=== PATIENT | female | born 1945 | race Caucasian/White ===

== ENCOUNTER 2019-07-29 07:34 | Inpatient (IN) | payer OTHER ==
[2019-07-23 13:51] LABS: HEMATOCRIT 41.6 % (37.0-47.0); HEMOGLOBIN 13.3 gm/dL (12.0-15.0); MCH 26.7 pg (26.0-34.0); MCV 83.5 fL (80.0-100.0); RBC 4.98 mil/uL (4.20-5.00); RDW 15.8 % (10.5-14.5); URINE BILIRUBIN NEGATIVE (Negative); URINE BLOOD NEGATIVE (Negative); URINE CLARITY CLEAR; URINE COLOR YELLOW; URINE GLUCOSE-RANDOM* NEGATIVE (Negative); URINE KETONES NEGATIVE (Negative); URINE LEUKOCYTES-REFLEX TRACE (Negative); URINE NITRITE-REFLEX NEGATIVE (Negative); URINE PROTEIN (DIPSTICK) NEGATIVE (Negative); URINE UROBILINOGEN 0.2 E.U./dl (0.2-1.0); WBC 9.8 thou/uL (4.0-11.0)
[2019-07-23 14:00] LABS: ALBUMIN 3.6 g/dL (3.4-5.0); CALCIUM 10.2 mg/dL (8.5-10.1); CREATININE 0.7 mg/dL (0.6-1.0); POTASSIUM 4.7 mmol/L (3.5-5.1)
[2019-07-23 14:08] LABS: PROTIME 10.3 Seconds (9.3-11.4)
[~2019-07-29] VITALS: Ht 162.6 cm; Wt 54.4 kg
[~2019-07-29 07:34] MED LIST: BETAINE PO; BOSWELLIA SERRAT1 GM PO; CARDIO PLUS PO; LOPRESSOR50 MG PO; LOPRESSOR50 PO; MAGNESIUM250 M1 PO; PROBIOTIC1 EAC7 PO; ULTRAM 50MG TAB50 MG PO; VITAMIN D31250 MC1 PO; [UNRECOGNIZED DRUG - OTHER] PO; [UNRECOGNIZED DRUG - OTHER] PO; [UNRECOGNIZED DRUG - OTHER] PO; [UNRECOGNIZED DRUG - OTHER] PO; [UNRECOGNIZED DRUG - OTHER] PO
[2019-07-29 08:41] VITALS: BP 154/83
--- NOTE | 2019-07-29 18:45 | NUR ---
PT RECEIVED FROM REC RM TO RM 437 ALERT AND IN NO ACUTE DISTRESS. DID HAVE SOME NAUSEA WITH PHYSICAL THERAPY THAT SOON SUBSIDED. NO C/O PAIN. ASSISTED UP TO [facility] USING WALKER AND DID WELL. EATING AND DRINKING W/O NAUSEA.
[2019-07-29 21:10] VITALS: BP 128/86
--- NOTE | 2019-07-30 02:12 | NUR ---
ASSESSMENT COMPLETED.PT IS ALERT AND ORIENTED. POST OP R KNEE WITH HAWK DRSG IN PLACE WELL POLAR STEFANIA. TOLERATING SCDS. PT GETS UP WELL WITH SBA TO THE BSC. VSS. C/O AND PRN OXYCODONE GIVEN. NEURO VASCULAR CHECKS INTACT TO RLE. PT DENIES ANY NAUSEA SO FAR. REMAINS ON ROOM AIR.GIVEN IV FLUIDS WELL IV ABTS.PROGRESSING TOWARDS GOALS.
[2019-07-30 06:08] LABS: HEMATOCRIT 34.7 % (37.0-47.0); MCH 26.8 pg (26.0-34.0); MCHC 31.7 g/dL (28.0-37.0); MCV 84.5 fL (80.0-100.0); RBC 4.11 mil/uL (4.20-5.00); RDW 15.8 % (10.5-14.5); WBC 10.7 thou/uL (4.0-11.0)
[2019-07-30 06:32] LABS: CREATININE 0.8 mg/dL (0.6-1.0); POTASSIUM 4.6 mmol/L (3.5-5.1)
[2019-07-30 07:29] VITALS: BP 136/74
--- NOTE | 2019-07-30 11:52 | NUR ---
Assumed care of pt at 0700. Pt a&ox4. Pain controlled with prn pain meds. Physical therapy worked with patient. LUCRETIA green and SCDs in place. Polar pack in place. Pt up to the chair this am. Family at bedside. Fall precautions in place. Will continue to monitor.
--- NOTE | 2019-07-30 13:28 | NUR ---
ASSESSMENT-PT LIVES AT HOME WITH HER . PT HAS BEEN USING A BORROWED WALKER OUTSIDE OF THE HOME AND OCCASIONALLY IN THE HOME. SPOUSE HAS BEEN DOING THE HOUSEHOLD THINGS. SHE HAS NOT HAD ANY HH SERVICES AND WILL GO TO OUTPT THERAPY IN [place] ON SATURDAY. THEY HAVE A DTR AND GRANDKIDS IN THE AREA AND A SISTER AND A NIECE. PRIOR TO THE ISSUE WITH HER KNEE PT WAS DRIVING. OFFERED OPTIONS FOR A WALKER AND SHE CHOSE [facility]. CONTACTED [facility] AND SHE WILL ISSUE PT A ROLLER WALKER TODAY. NO OTHER DC NEEDS IDENTIFIED.
--- NOTE | 2019-07-30 15:03 | O ---
[address] [address] OPERATIVE REPORT Name: RAVIN COTON Stewart Room #: 437-P ADM IN M.R.#: [id number] Admission: 07/29/19 Attend Phys: Gt Carballo MD Discharge: Date of : 41 Report #: [id number] THIS REPORT FOR: //name// CC: Gt Stacy DATE OF SERVICE: 07/29/2019 SERVICE: Orthopedics. FACILITY: [facility]. SURGEON: Gt Carballo MD FRUIT SPRAYER: Annalise Breger NP. INDICATION FOR FRUIT SPRAYER: Exposure retraction and assistance with the reconstruction and implantation and wound closure. PREOPERATIVE DIAGNOSES: 1. Right knee pain. 2. End-stage right knee osteoarthritis. 3. Right knee instability. POSTOPERATIVE DIAGNOSES: 1. Right knee pain. 2. End-stage right knee osteoarthritis. 3. Right knee instability. 4. Right knee osteopenia. PROCEDURES: 1. Right total knee arthroplasty. 2. Computer navigated robotic assistance, right knee. COMPLICATIONS: None. DRAINS: None. SPECIMENS: None. ANESTHESIA: General with regional. ESTIMATED BLOOD LOSS: 100 mL. FINDINGS: 1. [facility] [address] [address] OPERATIVE REPORT Name: ROCHELLE COTO Room #: 437-P [facility] IN ..#: [id number] Admission: 07/29/19 Attend Phys: Gt Carballo MD Discharge: Date of : 43 Report #: [id number] cobalt chrome size 4 narrow femur, Gen II size 2 tibia, size 11 constrained poly insert and size 29 patellar inset button. 2. Normal alignment, full extension, stable ligament balancing post-arthroplasty. HISTORY: The patient is a 73-year-old female who had severe right knee instability and osteoarthritis and was having lifestyle limiting pain. She was walking on a walker due to severe pain that would occur episodically with weightbearing due to her arthritis and instability. She had tried conservative measures including rest, activity modifications, physical therapy, oral medicines, modalities and even had a recent arthroscopy by an outside physician, but continued to have significant lifestyle limiting pain and wished to move forward with definitive treatment. She had bqgb-gq-ghyz arthritis with osteophytes and subchondral cyst noted on her preoperative imaging. Risks, benefits, alternatives and indication of surgery discussed with her in detail. Risks include but not limited to pain, bleeding, infection, injury to nerves or blood vessels, persistent pain despite surgical intervention, failure of any repairs, progression of any preexisting deformity, stiffness, need for further surgery including revision, periprosthetic fracture as well as complications related to anesthesia such as stroke, heart attack, pulmonary complications, thromboembolic disease and . Despite these risks, she wished to proceed. PROCEDURE IN DETAIL: After right lower extremity was correctly identified in preoperative holding area as the operative extremity, the patient underwent placement of single shot regional nerve block by Anesthesia. She was then taken to the operating room where general anesthesia was induced without complications. She was padded appropriately. Prophylactic antibiotics were administered at appropriate time. Tourniquet was applied to right leg. Right lower extremity was then prepped and draped in standard sterile fashion. Timeout procedure performed. Standard anterior approach was made with medial parapatellar arthrotomy. Full exposure was performed. There was extensive amount of synovitis. This was excised with the Bovie. She had some osteophytes proximally and medially and these were removed with the rongeur. The cruciates were removed and the remnants of the menisci, both medial and lateral menisci had been excised significantly with previous arthroscopic procedures. She had a 7-degree flexion contracture. The templating was performed with the [employer] navigation system. We placed the tracker checkpoints in the bone and then the half pins in the tibia and the femur, which allowed for secure placement of the external international sales manager and then we proceeded with templating. When the initial results returned, I was not happy with the appearance of the flexion and extension gap balancing and suspected that there was an irregularity due to a large osteophyte that was present at the transitional zone of the medial femoral condyle, so removed the osteophyte and then remapped the femoral anatomy and [address] [address] OPERATIVE REPORT Name: ROCHELLE COTO Room #: 437-P [facility] [place] .R.#: [id number] Admission: 07/29/19 Attend Phys: Gt Carballo MD Discharge: Date of : 43 Report #: [id number] then we went through the balancing process again and this gave much more reasonable and accurate results with an anticipated need for a medial release. She does have a history of instability with subluxation noted on her preoperative imaging, so I anticipated that potentially a constrained liner might be necessary, but that bony stability would likely bring about significant amount of stability. Then, the robotic assistance was used to create the distal femoral cut and then the 4-in-1 cutting block was placed on the distal femur and then serial cuts were made in typical fashion. We then used the robotic system to aid in placement of the tibial cutting block and then the tibial cuts were made while protecting the posterior vital structures. The femur was then prepared with the notch after the size 2 tibial tray was selected and pinned into position and then the trial polyethylene inserts were tested, ultimately selecting an 11 mm constrained poly liner, which gave good balancing both in flexion and extension after a pie-crusting technique was utilized on the medial aspect of the knee with fit in flexion utilizing a lamina electric razor assembler. The first four 30 mL injections were placed in the posterior capsule and then around the periosteum and then, we prepared the knee for final implantation of the implants and then thoroughly lavaged and then cemented the implants into place after the patella was then prepared for a 29-mm patellar inset button. The knee was placed into extension while the patellar component was secured and then the tourniquet was let down and we obtained hemostasis with electrocautery and then completed the periarticular soft tissue injection through remaining 3 syringes. At this point, I checked balancing once more and I was happy with the 11 mm constrained trial and selected this as a final polyethylene insert. Irrigated the knee once more, snapped this into position and assessed the alignment, which was neutral and the extension, which was full without a flexion contracture and the ligament balancing was balanced both in flexion and extension. Wound was then irrigated once more and the deep arthrotomy was closed with 0 Vicryl suture in [id number]-ce-arxkv fashion over a gram of vancomycin powder. Skin was closed with 2-0 Vicryl followed by running subcuticular 3-0 Monocryl and Dermabond. A silver impregnated negative pressure dressing was then applied to the knee and followed by a sterile dressing a compression stocking and PolarCare device. The patient was then awakened from anesthesia and taken to recovery room in stable condition. No complications. All counts were recorded as correct. Please note that there was a significant amount of osteopenia present perhaps osteoporosis and had to be quite gentle with instrumentation of the knee to avoid fracturing the condyle or tenting the bone. Some of these pins with the trials and the cutting blocks were able to be pushed in manually and did not even require the drill or the mallet. I therefore used additional pins on all trials and all cutting blocks to ensure that these maintained their appropriate position and did not disrupt the ultimate cut position. I was happy with the fit of the trials. Postoperatively, we will reinforce the importance of evaluation and followup and treatment for osteoporosis. I did discuss this with her [facility] [email or web address] [address] OPERATIVE REPORT Name: ROCHELLE COTO Room #: 437-P [facility] [place] .R.#: [id number] Admission: 07/29/19 Attend Phys: Gt Carballo MD Discharge: Date of : 43 Report #: [id number] already today as we want to be proactive in managing this and prevent risk of both periprosthetic fracture or other osteoporotic fractures. <ELECTRONICALLY SIGNED> By: Gt Carballo MD 07/30/19 1503 1209 1322 Gt Carballo MD /nt
[2019-07-30 16:51] VITALS: BP 141/80
[2019-07-30 19:50] VITALS: BP 147/86
--- NOTE | 2019-07-31 02:32 | NUR ---
PT REQUIERES SBA TO THE BSC. PAIN MEDS GIVEN WITH RELIEF. HAWK DRSG AND POLAR STEFANIA IN PLACE TO R KNEE. PROGRESSING TOWARDS CARE GOALS.
[2019-07-31 04:00] VITALS: BP 147/85
[2019-07-31 05:45] LABS: HEMATOCRIT 33.1 % (37.0-47.0); HEMOGLOBIN 10.4 gm/dL (12.0-15.0); MCH 26.8 pg (26.0-34.0); MCHC 31.5 g/dL (28.0-37.0); MCV 84.9 fL (80.0-100.0); RBC 3.9 mil/uL (4.20-5.00); RDW 16.2 % (10.5-14.5)
[2019-07-31 07:45] VITALS: BP 168/86
[2019-07-31 09:55] VITALS: BP 168/86
--- NOTE | 2019-07-31 11:11 | NUR ---
PT CARE ASSUMED AT 0700. A&Ox4. PT IS POST OP DAY 2. PT HAWK DRESSING INTACT. POLAR PACK IN PLACE. WE HAD TO CHANGE OUT THE LID OF THE POLAR PACK BECAUSE THE HOSE WAS DEFECTIVE. SCD IN PLACE. IV PATENT, WITH NO REDNESS OR EDEMA. IV REMOVED. PT IS UP TO THE BED SIDE COMMODE AND STILL IN A LOT OF PAIN THAT IS BEING CONTROLLED WITH PAIN MEDICATION. PT. IS UP WITH ONE AND A GAITBELT AND WALKER. PT DISCHARGE ORDERS ARE IN PLACE. PT EDUCATION WAS COMPLEETED. BED IN LOW POSITION, WITH BED ALARM IN PLACE AND LOCKED. CALL LIGHT IN REACH. PT DISCHARGED WITH . SCRIPTS SENT WITH PT.
== END 2019-07-31 11:11 | disposition home or self-care (01) | DRG 470 ==
LOC: 4S 07:34 → TBA 07:34 → PRE 12:59 → 4S 14:20 → PRE 17:28 → 4S 07-31 11:11
PROVIDERS: ADMIT Orthopaedic Surgery Sports Medicine
PROC: 0SRC069 Replacement of Right Knee Joint with Oxidized Zirconium on Polyethylene Synthetic Substitute, Cemented, Open Approach (ICD-10-PCS; principal; 2019-07-29)
PROC: 8E0Y0CZ Robotic Assisted Procedure of Lower Extremity, Open Approach (ICD-10-PCS; principal; 2019-07-29)
DX: M17.11 Unilateral primary osteoarthritis, right knee (principal); I10 Essential (primary) hypertension; M85.861 Other specified disorders of bone density and structure, right lower leg; M06.9 Rheumatoid arthritis, unspecified; Z79.82 Long term (current) use of aspirin; Z79.899 Other long term (current) drug therapy; M23.51 Chronic instability of knee, right knee
CPT/HCPCS: 10102; 50010; 50101; 50415; 50954; 51130; 51225; 51320; 52001; 52282; 53000; 53078; 53364; 54118; 56527; 56528; 57095; 57103; 57110; 57127; 57179; 62110; 62900; 64042; 70005

== ENCOUNTER → 2020-09-07 | Outpatient (CLI) | payer OTHER ==
[~2020-09-07] MED LIST changes: +BETAINE HCL300 MG PO; +CALCIFOOD PO; +PLAQUENIL200 MG PO; +TOPROL XL25 MG PO; +TRACE MINERALS PO; +[UNRECOGNIZED DRUG - OTHER] PO
== END ==
LOC: LAB 08:27
PROVIDERS: ATTEND Orthopaedic Surgery Sports Medicine
DX: Z01.812 Encounter for preprocedural laboratory examination (principal); Z20.822 Contact with and (suspected) exposure to COVID-19

== ENCOUNTER 2020-09-13 08:44 | Observation (INO) | payer OTHER ==
[2020-09-07 13:04] LABS: HEMATOCRIT 39.9 % (37.0-47.0); MCH 29.1 pg (26.0-34.0); MCHC 32.5 g/dL (28.0-37.0); MCV 89.4 fL (80.0-100.0); RBC 4.46 mil/uL (4.20-5.00); RDW 13.5 % (10.5-14.5); WBC 8.1 thou/uL (4.0-11.0)
[2020-09-07 13:27] LABS: ALBUMIN 3.4 g/dL (3.4-5.0); CALCIUM 9.4 mg/dL (8.5-10.1); CREATININE 0.7 mg/dL (0.6-1.0); POTASSIUM 4.3 mmol/L (3.5-5.1)
[2020-09-07 13:28] LABS: PROTIME 10.3 Seconds (9.3-11.4)
[2020-09-07 13:31] LABS: INR < 0.9
[2020-09-07 13:45] LABS: URINE BILIRUBIN NEGATIVE (Negative); URINE BLOOD NEGATIVE (Negative); URINE CLARITY CLEAR; URINE COLOR YELLOW; URINE GLUCOSE-RANDOM* NEGATIVE (Negative); URINE KETONES NEGATIVE (Negative); URINE LEUKOCYTES-REFLEX NEGATIVE (Negative); URINE NITRITE-REFLEX NEGATIVE (Negative); URINE PROTEIN (DIPSTICK) NEGATIVE (Negative); URINE UROBILINOGEN 0.2 E.U./dl (0.2-1.0)
--- NOTE | 2020-09-07 17:43 | EKG ---
[address] [address] ELECTROCARDIOGRAM REPORT Name: CHICAROCHELLE Stewart Room #: [facility]#: [id number] Admission: Attend Phys: Gt Carballo MD Discharge: Date of : 43 Report #: [id number] [facility] Test Date: 2020-09-07 Test Time: 12:55:25 Pat Name: ROCHELLE COTO Department: Room: Gender: F Material Coordinator: Tyler LOCO : 1945 Requested By: Gt Carballo Order Number: [id number] MD: Margarito Tyson Measurements Intervals [place] Rate: 88 P: 59 [place]: 202 QRS: 4 QRSD: 89 T: 40 QT: 364 QTc: 441 Interpretive Statements Sinus rhythm Probable left atrial enlargement No previous ECG available for comparison Electronically Signed On 09-07-2020 17:43:18 MECHANICAL ASSEMBLY TECHNICIAN by Margarito Tyson [email or web address] <ELECTRONICALLY SIGNED> By: Margarito Tyson MD 09/07/20 1743 1255 1255 Margarito Tyson MD /ZACKARY
[~2020-09-13] VITALS: Ht 162.6 cm; Wt 63.0 kg
--- NOTE | ~2020-09-13 | O ---
[address] [address] OPERATIVE REPORT Name: ROCHELLE COTO Room #: 150-9 [facility]#: [id number] Admission: 09/13/20 Attend Phys: Gt Carballo MD Discharge: Date of : 43 Report #: [id number] THIS REPORT FOR: cc: Neelam Delcid MD, Jessica D. MD McCabe,Gt Kunz MD ~ DATE OF SERVICE: 09/13/2020 SERVICE: Orthopedics. FACILITY: [facility]. SURGEON: Gt Carballo MD CHYRON OPERATOR: Annalise Berger. INDICATION FOR CHYRON OPERATOR: Assistance with exposure, retraction, implants and closure. PREOPERATIVE DIAGNOSES: 1. Left knee pain. 2. Left knee osteoarthritis. 3. Rheumatoid arthritis. 4. Osteopenia. POSTOPERATIVE DIAGNOSES: 1. Left knee pain. 2. Left knee osteoarthritis. 3. Rheumatoid arthritis. 4. Osteopenia. PROCEDURES: 1. Left total knee arthroplasty. 2. Robotic-assisted arthroplasty. COMPLICATIONS: None. DRAINS: None. SPECIMENS: None. ESTIMATED BLOOD LOSS: 75 mL. FINDINGS: [employer] [place] chrome size 4 femur, size 2 tibia, 11 constrained poly insert and 32 mm patellar button. [address] [address] OPERATIVE REPORT Name: ROCHELLE COTO [id number] Admission: 09/13/20 Attend Phys: Gt Carballo MD Discharge: Date of : 43 Report #: [id number] HISTORY: The patient is a 75-year-old female with severe left knee osteoarthritis, [id number] with osteophytes, sclerosis and activity of daily living ____ pain. She had failed all conservative measures including rest, activity modifications, physical therapy, oral medicines, injections, and modalities. She was indicated for surgical treatment after failing these and wished to move forward after the risks, benefits, alternatives, and indication of surgery were discussed with her in detail. Risks include but not limited to pain, bleeding, infection, injury nerves or blood vessels, persistent pain despite surgical intervention, stiffness, need for further surgery as well as complications related to anesthesia. Despite these risks, she wished to proceed. PROCEDURE IN DETAIL: After left lower extremity was correctly identified in the preoperative holding area as the operative extremity, the patient underwent regional nerve block. She was then taken to the operating room where general anesthesia was induced without complication. She was padded appropriately. Prophylactic antibiotics were administered at appropriate time. Tourniquet was applied to the left leg. Left lower extremity was then prepped and draped in standard sterile fashion. Timeout of the procedure was performed. Esmarch was used. Tourniquet inflated to 250 mmHg. Standard anterior approach was made with medial parapatellar arthrotomy and we proceeded with standard exposure with excision of the anterior horn of the medial and lateral menisci, the cruciates and the retropatellar tendon fat pad. I spent some additional time just removing an extensive amount of synovitis as present, which was very hemosiderin laden was consistent with her history of rheumatoid arthritis. She had thickened proliferative synovitis in all compartments and removed this tissue as encountered. The osteophytes were removed and then we placed the checkpoint in the tibia. I placed a checkpoint in multiple locations in the femur, but the bone osteoporosis is significant enough that this checkpoint would not safe secure, so utilized the encephalographer as our checkpoint instead and then after placing the half pins in the standard fashion to set up the [employer] robotic system. The femur and tibia were then mapped via standard process and then the distal femoral cut was made with the Navio bur. The 5-in-1 cutting block was placed with a size 4 femoral component. We did balance her and spent some extra time working on because of her preoperative valgus flexion deformity, which was not severe, but it was associated with some dynamic laxity of her ligaments, which we had encountered on the right knee. She was happy with her right total knee arthroplasty and ultimately we ended up using same implants on the left knee as the right knee other than the patella by utilizing a 32 mm patella today, whereas the right knee has a 29 mm patella. Again, based on the Navio templating, we went with the 4 femur and then the [address] [address] OPERATIVE REPORT Name: ROCHELLE COTO Room #: 150-9 [facility].#: [id number] Admission: 09/13/20 Attend Phys: Gt Carballo MD Discharge: Date of : 43 Report #: [id number] 5-in-1 cutting block, the bone was quite soft. The tibia was then prepared in the typical fashion with the Navio guidance and preparing the tibia did not drill the center peg hole, but just impacted it with the impactor in order to preserve the bone stock as much as possible. The posterior horns of the menisci and the remnant of the PCL were excised. We used the sizing blocks to assess for gap balancing and she was pretty well balanced overall, given her preoperative baseline, which was largely affected by a significant lateral laxity. After the femur and the tibia were adequately prepared, the trials were placed and then the box cut was made and we trialled with the GlobeInio multiple tibial poly insert options and ultimately went with the 11 constrained. We initially sized for a 9 or 10, but the soft tissue laxity and the bone quality led to the ultimate selection of the 11, which was a similar case on the right knee. The knee was well balanced both with the Navio and on gross inspection. We removed the trials thoroughly irrigated finished the preparation. The patella was prepared for a 32 mm patellar inset button as well and then the final implants were cemented into place. We let the cement cure with the knee in extension with the 11 constrained poly. Excess cement was removed and then the tourniquet was let down and hemostasis was achieved. We used a periarticular injection cocktail with the posterior capsule injected after the sizing block was utilized and removed and then the remaining portion of the periosteum and capsule injected while the cement cured. The knee was then once again assessed with this cemented implants in place with the 11 constrained poly trial and I was happy with the balancing here and so we selected this final implant, irrigated and then placed the poly and snapped into position. The knee was well balanced in good alignment and had a 1 degree flexion contracture after completion of the procedure and the valgus was corrected as well. The balancing was appropriate. The arthrotomy was closed over a gram of vancomycin powder with 0 Vicryl suture in bbmlui-[id number]-dczof fashion. The skin was closed with 2-0 Vicryl followed by running subcuticular 3-0 Monocryl and Dermabond. Sterile dressing was applied followed by compression stocking and a PolarCare device. The patient was awakened from anesthesia and taken to recovery room in stable condition. No complications. All counts were correct. By: 1322 1341 Gt Carballo MD /nt
[2020-09-13 11:14] VITALS: BP 164/94
[2020-09-13 15:15] VITALS: BP 151/90
[2020-09-13 15:44] VITALS: BP 131/83
[2020-09-13 16:13] VITALS: BP 138/91
[2020-09-13 17:29] VITALS: BP 146/91
[2020-09-13 21:02] VITALS: BP 146/92
[2020-09-14 05:36] LABS: HEMATOCRIT 33.3 % (37.0-47.0); HEMOGLOBIN 10.8 gm/dL (12.0-15.0); MCH 29.2 pg (26.0-34.0); MCHC 32.4 g/dL (28.0-37.0); MCV 90.2 fL (80.0-100.0); RBC 3.69 mil/uL (4.20-5.00); RDW 13.6 % (10.5-14.5); WBC 11.1 thou/uL (4.0-11.0)
[2020-09-14 05:57] LABS: CALCIUM 8.6 mg/dL (8.5-10.1); CREATININE 1.1 mg/dL (0.6-1.0); POTASSIUM 4.2 mmol/L (3.5-5.1)
[2020-09-14 08:19] VITALS: BP 138/76
[2020-09-14 12:03] VITALS: BP 138/76
== END 2020-09-14 13:41 | disposition home or self-care (01) ==
LOC: OR 08:44 → TBA 08:46 → OR 12:15 → 4S 15:28 → OR 16:00 → EDSTATUS 17:20 → 4S 09-14 13:41
PROVIDERS: ADMIT Orthopaedic Surgery Sports Medicine; ATTEND Orthopaedic Surgery Sports Medicine
DX: M17.12 Unilateral primary osteoarthritis, left knee (principal); M17.11 Unilateral primary osteoarthritis, right knee; M06.9 Rheumatoid arthritis, unspecified; M85.80 Other specified disorders of bone density and structure, unspecified site; Z79.899 Other long term (current) drug therapy
CPT/HCPCS: 27447; S2900; 50010; 50101; 50415; 50954; 51130; 51225; 52001; 52282; 53000; 53078; 54118; 56527; 56528; 57095; 57103; 57110; 57127; 57180; 58239; 62110; 62900; 70005